=== PATIENT | male | born 1945 | race Caucasian/White ===

== ENCOUNTER 2023-12-12 09:48 | Observation (INO) | payer MEDICARE ==
[~2023-12-12] VITALS: Ht 185.4 cm; Wt 95.5 kg
[2023-12-12] MEDS: LIDOCAINE 2% 5ML JELLY UROJET TOP ONE (11:35)
[2023-12-12 11:38] LABS: BASO # 0.1 10^3/uL (0.0-0.2); BASO % 0.4 % (0.0-1.0); EOS # 0.1 10^3/uL (0.0-0.5); EOS % 0.4 % (0.0-3.0); HEMOGLOBIN 15.3 g/dl (13.5-17.5); LYMPH # 1.1 10^3/uL (1.5-5.0); LYMPH % 6.8 % (24.0-44.0); MEAN CORPUSCULAR HEMOGLOBIN 30.1 pg (27.0-33.0); MEAN CORPUSCULAR VOLUME 88.4 fl (80.0-96.0); MONO # 0.9 10^3/uL (0.0-0.8); MONO % 5.7 % (2.0-8.0); NEUTROPHILS # 13.4 10^3/uL (1.5-8.5); NEUTROPHILS % 86.1 % (36.0-66.0); PLATELET COUNT, AUTOMATED 194 10^3/uL (150-450); RED BLOOD COUNT 5.09 10^6/uL (4.30-6.10); WHITE BLOOD COUNT 15.6 10^3/uL (4.0-10.0)
[2023-12-12 11:53] LABS: INR 1.09; PARTIAL THROMBOPLASTIN TIME 28.2 SECONDS (24.8-34.2); PROTHROMBIN TIME 13.8 SECONDS (12.5-14.5)
[2023-12-12 12:37] LABS: CALCIUM LEVEL 9.2 MG/DL (8.3-10.6); CARBON DIOXIDE LEVEL 22.5 MMOL/L (20-31); CREATININE FOR GFR 2.51 MG/DL (0.70-1.30); GLOMERULAR FILTRATION RATE 26.7 (>42); POTASSIUM SERUM 3.9 MMOL/L (3.5-5.1)
[2023-12-12 12:38] LABS: ALBUMIN 3.7 G/DL (3.2-5.2); BILIRUBIN,DIRECT 0.2 MG/DL (<0.4); BILIRUBIN,TOTAL 0.4 MG/DL (0.3-1.2); TOTAL PROTEIN 7.4 G/DL (5.7-8.2)
[2023-12-12 13:11] LABS: ETHYL ALCOHOL (ETHANOL) 0.004 % (0.000-0.010)
[2023-12-12 13:12] LABS: CK-MB VALUE MASS 1.4 NG/ML (<3.6)
[2023-12-12 13:13] LABS: CPK CREATINE PHOSPHOKINASE 76 U/L (46-171); MB/CK RELATIVE INDEX 1.84 (< OR =4); SALICYLATE LEVEL < 3.0 MG/DL (<30)
[2023-12-12 13:17] LABS: THYROID STIMULATING HORMONE 1.432 uIU/ML (0.55-4.78)
[2023-12-12 13:44] LABS: AMPHETAMINES LEVEL URINE NEGATIVE (NEGATIVE); BARBITURATES URINE NEGATIVE (NEGATIVE); CANNABINOIDS URINE NEGATIVE (NEGATIVE); METHADONE URINE NEGATIVE (NEGATIVE); OPIATES URINE NEGATIVE (NEGATIVE); PHENCYCLIDINE URINE NEGATIVE (NEGATIVE)
[2023-12-12 13:45] LABS: BENZODIAZEPINES URINE POSITIVE (NEGATIVE); COCAINE METABOLITE URINE POSITIVE (NEGATIVE)
[2023-12-12 14:23] LABS: CK-MB VALUE MASS < 1.0 NG/ML (<3.6)
[2023-12-12 14:25] LABS: CPK CREATINE PHOSPHOKINASE 75 U/L (46-171); MB/CK RELATIVE INDEX 1.33 (< OR =4)
[2023-12-12] MEDS: NS 1,000 ML IV ONE (14:52)
[2023-12-12] MEDS ORDERED: ACETAMINOPHEN 325 MG TAB PO PRN (16:35)
[2023-12-12] MEDS ORDERED: ALLO10TA PO (17:01)
[2023-12-12] MEDS ORDERED: LISI5TAB11 PO (17:01)
[2023-12-12] MEDS ORDERED: AMLO1TAB25 PO (17:01)
[2023-12-12] MEDS ORDERED: TAMS1CAP17 PO (17:01)
[2023-12-12] MEDS ORDERED: GABA-1171 PO (17:01)
[2023-12-12] MEDS ORDERED: ROSU20TA86 PO (17:01)
[2023-12-12] MEDS ORDERED: CHLO125TA PO (17:01)
[2023-12-12] MEDS ORDERED: DULO30CA9 PO (17:01)
[2023-12-12] MEDS ORDERED: HOME MED LIST COMPLETE! XX SCH (17:05)
[2023-12-12] MEDS: cefTRIAXone SOD 1 GM in DEXTROSE 5% (D5W) ADV/MINI-BAG 50 ML IV SCH (17:49)
[2023-12-12] MEDS: TAMSULOSIN 0.4 MG CAP PO SCH (21:15)
[2023-12-12] MEDS: GABAPENTIN 100 MG CAP PO SCH (21:15)
[2023-12-13 06:24] LABS: MEAN CORPUSCULAR HEMOGLOBIN 29.5 pg (27.0-33.0); MEAN CORPUSCULAR HGB CONC 33.6 g/dl (32.0-36.5); MEAN CORPUSCULAR VOLUME 87.8 fl (80.0-96.0); PLATELET COUNT, AUTOMATED 169 10^3/uL (150-450); RED BLOOD COUNT 4.34 10^6/uL (4.30-6.10); WHITE BLOOD COUNT 9.5 10^3/uL (4.0-10.0)
[2023-12-13 06:37] LABS: ALBUMIN 2.9 G/DL (3.2-5.2); BILIRUBIN,TOTAL 0.4 MG/DL (0.3-1.2); CALCIUM LEVEL 8.5 MG/DL (8.3-10.6); CREATININE FOR GFR 2.2 MG/DL (0.70-1.30); GLOMERULAR FILTRATION RATE 31.1 (>42); POTASSIUM SERUM 3.9 MMOL/L (3.5-5.1)
[2023-12-13 06:50] LABS: HEMATOCRIT 38.1 % (42.0-52.0); HEMOGLOBIN 12.8 g/dl (13.5-17.5)
[2023-12-13] MEDS: PANTOPRAZOLE 40MG VIAL IV SCH (08:05)
[2023-12-13] MEDS: NS 500 ML IV ONE ×2 (08:05→10:55)
[2023-12-13 08:06] VITALS: BP 154/86
[2023-12-13] MEDS: allopurinoL 100 MG TAB PO SCH (08:06)
[2023-12-13] MEDS: ROSUVASTATIN 10 MG TAB (CRESTOR) PO SCH (08:06)
[2023-12-13] MEDS ORDERED: AMLO1TAB25 PO (12:21)
[2023-12-13] MEDS ORDERED: FLOM0.4C39 PO (12:21)
[2023-12-13 14:33] LABS: CALCIUM LEVEL 8.4 MG/DL (8.3-10.6); CREATININE FOR GFR 2.01 MG/DL (0.70-1.30); GLOMERULAR FILTRATION RATE 34.5 (>42); POTASSIUM SERUM 3.8 MMOL/L (3.5-5.1)
[2023-12-13 14:46] VITALS: BP 165/86; TEMP 97; O2SAT 99
== END 2023-12-13 15:10 | disposition home or self-care (01) ==
LOC: M ED 09:48 → M ED INP 09:49 → UNDOADMOB 09:49
PROVIDERS: ADMIT Hospitalist; ATTEND Hospitalist
DX: N13.9 Obstructive and reflux uropathy, unspecified (principal); R33.9 Retention of urine, unspecified; N17.9 Acute kidney failure, unspecified; I16.0 Hypertensive urgency; N40.1 Benign prostatic hyperplasia with lower urinary tract symptoms; Z91.199 Patient's noncompliance with other medical treatment and regimen due to unspecified reason; Z95.1 Presence of aortocoronary bypass graft; F17.210 Nicotine dependence, cigarettes, uncomplicated; F12.90 Cannabis use, unspecified, uncomplicated; F14.90 Cocaine use, unspecified, uncomplicated; R94.31 Abnormal electrocardiogram [ECG] [EKG]; R10.30 Lower abdominal pain, unspecified; N18.9 Chronic kidney disease, unspecified; R41.82 Altered mental status, unspecified; D72.829 Elevated white blood cell count, unspecified; S30.1XXA Contusion of abdominal wall, initial encounter; W18.30XA Fall on same level, unspecified, initial encounter; Y92.017 Garden or yard in single-family (private) house as the place of occurrence of the external cause; Y93.9 Activity, unspecified; Y99.9 Unspecified external cause status; N20.0 Calculus of kidney; Z88.0 Allergy status to penicillin; Z79.899 Other long term (current) drug therapy
CPT/HCPCS: 36415; 51702; 70450; 74176; 76775; 76857; 80047; 80048; 80053; 80076; 80143; 80307; 81001; 82077; 82140; 82150; 82550; 82553; 83605; 83690; 84443; 84484; 85025; 85027; 85610; 85730; 87040; 93005; 96361; 96365; 96375; 99285; G0378; J0696; J2470